=== PATIENT | male | born 1970 | race Caucasian/White ===

== ENCOUNTER 2023-09-10 17:02 | Emergency (ER) | payer OTHER ==
[~2023-09-10] VITALS: Ht 177 cm; Wt 106.8 kg
[2023-09-10 17:15] VITALS: TEMP 98.1
[2023-09-10] MEDS ORDERED: Morphine 4 MG/ML VIAL IV PRN (17:30)
[2023-09-10] MEDS ORDERED: NS 1,000 ML IV ONE (17:30)
[2023-09-10] MEDS ORDERED: Ondansetron 4 MG/2 ML VIAL IV PRN (17:30)
[2023-09-10] MEDS ORDERED: NS 50 ML IV SCH (18:13)
[2023-09-10] MEDS ORDERED: Iohexol 300 - 100 ML VIAL IV ONE (18:13)
[2023-09-10 18:14] LABS: BASO # 0.1 K/mm3 (0.0-0.2); BASO % 0.9 % (0.0-2.0); EOS # 0.2 K/mm3 (0.0-0.7); EOS % 2.9 % (0.0-4.0); GRAN # 4.7 K/mm3 (1.4-6.5); GRAN % 62.6 % (42.2-75.2); HEMOGLOBIN 15.7 g/dl (13.5-18.0); LYMPH # 1.8 K/mm3 (1.2-3.4); LYMPH % 24.6 % (20.0-51.0); MEAN CELL VOLUME 91 fl (80.0-100.0); MEAN CORPUSCULAR HEMOGLOBIN 30 pg (27-31); MEAN CORPUSCULAR HGB CONC 33 g/dl (33.0-37.0); MEAN PLATELET VOLUME 10.1 fl (7.4-10.4); MONO # 0.7 K/mm3 (0.1-0.6); MONO % 8.7 % (1.7-9.3); PLATELET COUNT 280 K/mm3 (130-400); RED BLOOD COUNT 5.18 M/mm3 (4.20-5.60); REDCELL DISTRIBUTION WIDTH-CV 12.7 % (11.5-14.5)
[2023-09-10 18:29] LABS: ALBUMIN 3.8 gm/dL (3.5-5.0); BILIRUBIN,TOTAL 0.4 mg/dL (0.2-1.2); CALCIUM 9.3 mg/dL (8.4-10.2); CREATININE, serum 0.96 mg/dL (0.72-1.25); POTASSIUM 4.1 mmol/L (3.5-4.5); TOTAL PROTEIN 6.8 gm/dL (6.2-8.1)
[2023-09-10 19:10] LABS: URINE APPEARANCE CLEAR (CLEAR/HAZY); URINE BLOOD NEGATIVE (NEGATIVE); URINE COLOR YELLOW (YELLOW); URINE GLUCOSE NEGATIVE (NEGATIVE); URINE KETONE NEGATIVE (NEGATIVE); URINE NITRATE NEGATIVE (NEGATIVE); URINE PROTEIN(semi-quant) NEGATIVE (NEGATIVE); URINE UROBILINOGEN 0.2 E.U/dL (0.2-1.0)
[2023-09-10] MEDS ORDERED: FLEXERIL 1010 MG/TAB PO (19:44)
[2023-09-10] MEDS ORDERED: NORCO 325 MG-51 TAB PO (19:44)
[2023-09-10 19:54] VITALS: BP 140/82; PULSE 72
[2023-09-10 20:01] LABS: COLLECTION METHOD CLEAN CATCH
== END 2023-09-10 19:54 | disposition home or self-care (01) ==
LOC: COL.ER 17:02
PROVIDERS: Personal Emergency Response Attendant
DX: R10.9 Unspecified abdominal pain (principal)
CPT/HCPCS: J2270; J2405; J7030; Q9967